=== PATIENT | female | born 1940 | race Caucasian/White ===

== ENCOUNTER 2017-01-22 07:50 | Day surgery (SDC) | payer MEDICARE, BC ==
[2015-11-17 07:34] VITALS: BP 92/56
--- OUTSIDE RECORDS SUMMARY | 2017-01-22 07:54 | XMS REPORT | Continuity of Care Document ---
:1940 Author Organization [facility] ([facility]) [place] [address] Phone [phone] Care Team Providers Name Role Phone Robert Santo Primary Care Provider [phone] Source Comments This disclosure is being made pursuant to the Care Everywhere program, applicable federal and state laws, and may not contain all informaitonavailable regarding this patient.[facility] ([facility]) Active Allergies and Adverse Reactions Allergen Noted Date Severity Reactions Comments Morphine Sulfate 11/17/2015 Mental status changes Current Medications Prescription Sig. Disp. Refills Start Date End Date Status FLUoxetine 40 mg Take 40 mg by Active capsule mouth daily. ALPRAZolam 0.5 mg Take 0.5 mg Active tablet by mouth 2 times daily as needed. multivitamin tablet Take 1 tablet Active by mouth daily. ibuprofen 200 mg Take 400 mg Active tablet by mouth every morning. mirtazapine 45 mg Take 45 mg by Active tablet mouth at bedtime. amLODIPine 10 mg Take 1 tablet 30 tablet 6 11/22/2015 Active tablet (10 mg total) by mouth daily. carvedilol 12.5 mg Take 1 tablet 60 tablet 11/22/2015 Active tablet (12.5 mg total) by mouth 2 times daily. clopidogrel 75 mg Take 1 tablet 30 tablet 11/22/2015 Active tablet (75 mg total) by mouth daily. lisinopril 30 mg Take 30 mg by 05/30/2016 Active tablet mouth daily. levothyroxine 50 mcg Take 50 mcg Active tablet by mouth every morning before breakfast. naproxen 250 mg Take 250 mg Active tablet by mouth 2 times daily with meals. donepezil 5 mg Take 5 mg by Active tablet mouth at bedtime. atorvastatin 20 mg Take 10 mg by Active tablet mouth every evening. aspirin 81 mg Take 1 tablet 30 tablet 12/24/2016 Active chewable tablet (81 mg total) by mouth daily. aspirin 81 mg Take 1 tablet 30 tablet 11 11/22/2015 12/24/2016 Discontinued chewable tablet (81 mg total) by mouth daily. Active Problems Problem Noted Date Anemia due to blood loss, acute 11/21/2015 Overview: Monitor h/h and replace per protocol Hematoma of groin 11/21/2015 Overview: Monitor consider ultrasound to rule out pseudo Metabolic encephalopathy 11/18/2015 Overview: Patient with increased confusion following EVAR for AAA. Per family, patient has some early signs of underlying dementia at baseline. Will continue non-pharmacologic management at this time. Abdominal aortic aneurysm without rupture 11/17/2015 Essential hypertension 11/17/2015 Overview: 11/16: Invasive HD monitoring. Oral hypertensives for baseline control. Intermittently requiring nicardipine for BP control. Most Recent Encounters Date Type Specialty Providers Description 12/24/2016 Hospital Encounter [facility] Chief Comp: Irina Johns MD Reported Reason For Visit 12/24/2016 Hospital Encounter [facility] Chief Comp: Irina Johns MD Reported Reason For Visit 12/24/2016 Hospital Encounter [facility] Chief Comp: Irina Johns MD Reported Reason For Visit 12/24/2016 Office Visit [facility] Dx: Abdominal aortic MD Andreas aneurysm without rupture (Primary Dx) Social History Tobacco Use Types Packs/Day Years Used Date Former Smoker Quit: 11/13/2015 Smokeless Tobacco: Never Used Last Filed Vital Signs Vital Sign Reading Time Taken Blood Pressure 136/50 12/24/2016 11:34 AM CDT Pulse 56 12/24/2016 11:34 AM CDT Temperature 36.4 C (97.5 F) 12/24/2016 11:32 AM CDT Respiratory Rate 20 11/21/2015 8:39 PM CDT Height 1.626 m (5' 4") 12/24/2016 11:32 AM CDT Weight 77.45 kg (170 lb 11.9 oz) 12/24/2016 11:32 AM CDT Body Mass Index 29.29 12/24/2016 11:32 AM CDT Oxygen Saturation 94% 11/22/2015 8:18 AM CDT Plan of Care Date Type Specialty Providers Description 12/23/2017 Appointment Radiology Chief Comp: Patient Reported Reason For Visit 12/23/2017 Appointment [facility], Chief Comp: Patient MD Reported Reason For [address] [place] [address] [phone] (Fax) 12/23/2017 Appointment [facility], Chief Comp: Patient Reported Reason For [address] [place] [address] [phone] (Fax) Health Maintenance Due Date Last Done Comments Hepatitis B Vaccine (1 of 3 - Primary Series) 1940 Tdap Vaccine 01/20/1952 Lipid Disorder Screening 1959 Td Vaccine 1959 Mammogram 1981 Colonoscopy 1991 Zoster Vaccine 2001 Osteoporosis Screening (DXA Bone Density) 2006 Pneumococcal Vaccine (1 of 2 - PCV13) 2006 Influenza Vaccine: Seasonal (Season Ended) 2017 Results from Last 3 Months VASC RENAL HILAR DUPLEX (BILATERAL) (12/24/2016 11:27 AM) Component Value Range VASC RIGHT RENAL MIDDLE PARENCHYMA ACCELERATION INDEX 4.27 m/(sec)^2 VASC RIGHT RENAL MIDDLE PARENCHYMA RI 0.72 VASC RIGHT RENAL MIDDLE PARENCHYMA PI 1.92 VASC LEFT RENAL MIDDLE PARENCHYMA ACCELERATION INDEX 4.33 m/(sec)^2 VASC LEFT RENAL MIDDLE PARENCHYMA RI 0.70 VASC LEFT RENAL MIDDLE PARENCHYMA PI 1.43 VASC AORTA DUPLEX (COMPLETE) (12/24/2016 11:27 AM) Component Value Range VASC AORTA SAC MAX DIAMETER AP 5.0 cm VASC AORTA SAC MAX DIAMETER TRANS 4.3 cm
== END 2017-01-22 07:51 | disposition home or self-care (01) ==
LOC: AMB 07:50
PROVIDERS: ATTEND Internal Medicine
DX: K52.9 Noninfective gastroenteritis and colitis, unspecified (principal)

== ENCOUNTER 2017-01-23 07:57 | Day surgery (SDC) | payer MEDICARE, BC ==
[2015-11-17 07:34] VITALS: BP 92/56
[~2017-01-23 07:57] MED LIST: LACTULOSE 10 G/15 ML BTL PO PRN
--- OUTSIDE RECORDS SUMMARY | 2017-01-23 08:01 | XMS REPORT | Continuity of Care Document ---
:1940 Author Organization [facility] ([facility]) [place] [address] Phone [phone] Care Team Providers Name Role Phone Robert Santo Primary Care Provider [phone] Source Comments This disclosure is being made pursuant to the Care Everywhere program, applicable federal and state laws, and may not contain all informaitonavailable regarding this patient.[facility] ([facility]) Active Allergies and Adverse Reactions Allergen Noted Date Severity Reactions Comments Morphine Sulfate 11/17/2015 Mental status changes Current Medications Prescription Sig. Disp. Refills Start Date End Date Status FLUoxetine 40 mg Take 40 mg by Active capsule mouth daily. ALPRAZolam 0.5 mg Take 0.5 mg by Active tablet mouth 2 times daily as needed. multivitamin tablet Take 1 tablet by Active mouth daily. ibuprofen 200 mg tablet Take 400 mg by Active mouth every morning. mirtazapine 45 mg Take 45 mg by Active tablet mouth at bedtime. amLODIPine 10 mg tablet Take 1 tablet (10 30 tablet 11/22/2015 Active mg total) by mouth daily. carvedilol 12.5 mg Take 1 tablet 60 tablet 11/22/2015 Active tablet (12.5 mg total) by mouth 2 times daily. clopidogrel 75 mg Take 1 tablet (75 30 tablet 11/22/2015 Active tablet mg total) by mouth daily. lisinopril 30 mg tablet Take 30 mg by 05/30/2016 Active mouth daily. levothyroxine 50 mcg Take 50 mcg by Active tablet mouth every morning before breakfast. naproxen 250 mg tablet Take 250 mg by Active mouth 2 times daily with meals. donepezil 5 mg tablet Take 5 mg by Active mouth at bedtime. atorvastatin 20 mg Take 10 mg by Active tablet mouth every evening. aspirin 81 mg chewable Take 1 tablet (81 30 tablet 12/24/2016 Active tablet mg total) by mouth daily. Active Problems [...] Reported Reason For Visit 12/24/2016 Hospital Encounter [facility] Chief Comp: Irina [...] [facility], Chief Comp: Patient Reported Reason For [address] [place] [address] [phone] (Fax) 12/23/2017 Appointment [facility], Chief Comp: Patient MD Reported Reason For [address] [place] [address] [phone] (Fax) Health Maintenance Due Date Last Done [...]
== END 2017-01-23 07:58 | disposition home or self-care (01) ==
LOC: AMB 07:57
PROVIDERS: ATTEND Internal Medicine
DX: K52.9 Noninfective gastroenteritis and colitis, unspecified (principal)

== ENCOUNTER 2017-01-24 08:23 | Day surgery (SDC) | payer MEDICARE, BC ==
[2015-11-17 07:34] VITALS: BP 92/56
--- OUTSIDE RECORDS SUMMARY | 2017-01-24 08:27 | XMS REPORT | Continuity of Care Document ---
:1940 Author Organization [facility] ([facility]) [place] [address] Phone [phone] Care Team Providers Name Role Phone Robert Santo Primary Care Provider [phone] Source Comments This disclosure is being made pursuant to the Care Everywhere program, applicable federal and state laws, and may not contain all informaitonavailable regarding this patient.[facility] ([facility]) Active Allergies and Adverse Reactions Allergen Noted [...] Reported Reason For [address] [place] [address] [phone] (Fax) 12/23/2017 Appointment [facility], Chief Comp: Patient MD Reported Reason For [address] [place] [address] [phone] (Fax) Health Maintenance Due Date Last Done [...]
== END 2017-01-24 08:24 | disposition home or self-care (01) ==
LOC: AMB 08:23
PROVIDERS: ATTEND Internal Medicine
DX: K52.9 Noninfective gastroenteritis and colitis, unspecified (principal)

== ENCOUNTER 2017-03-09 17:00 | Emergency (ER) | payer MEDICARE, BC ==
[2017-03-09] MEDS ORDERED: ACETAMINOPHEN 325 MG TABLET PO ONE (17:52)
[2017-03-09] MEDS ORDERED: ACETAMINOPHEN 325 MG TABLET ONE (17:58)
[2017-03-09 18:04] LABS: Hematocrit 37.2 % (37.0-47.0); Hemoglobin 12.3 gm/dL (12.5-16.0); Mean Cell Volume 93.7 fl (78-100); Mean Corpuscular Hgb Conc 33.1 g/dl (32-36); Neutrophil # 4.4 K/mm3 (1.3-6.0); Neutrophil % 57.8 % (42-75.0); Platelet Count 246 K/mm3 (150-450); Red Blood Count 3.97 M/mm3 (4.2-5.4); Red Cell Distribution Width 15.3 % (11.5-14.0); White Blood Count 7.6 K/mm3 (4.0-10.5)
--- NOTE | 2017-03-09 18:08 | ERNOTE ---
Abdominal HPI - General Chief Complaint: Abdominal Pain Time Seen by Provider: 03/09/17 17:41 Source: patient, family Exam Limitations: no limitations - Immun/Allergies/Home Medications Immunizatons: IMMUNIZATION HX Immunizations Up to Date No Allergies/Adverse Reactions: Allergies morphine Adverse Reaction (Intermediate, Verified 03/09/17 17:19) Other patient became obtunded with medication. Home Medications: HOME MEDICATIONS ALPRAZolam [Xanax] 1 mg PO TID PRN 11/17/15 [Last Taken Unknown] FLUoxetine HCL [Prozac] 20 mg PO DAILY 11/17/15 [Last Taken Unknown] - History of Present Illness Narrative: Patient has had intermittent diarrhea for a few months. Yesterday shortly after eating steak and a baked potato at a restaurant she had a large amount of explosive diarrhea and she has had lower abdominal pain since. The pain is cramping and sharp and waxes and wanes, currently 5/10. With the acute diarrhea she lost control of her bladder but has not had any problems since, no increased frequency, no dysuria, no vomiting. She has seen her PCP for the diarrhea and is scheduled for a colonoscopy next month (last one 10 years go) Date (Duration): 03/08/17 Time (Timing): 17:30 Timing: intermittent Quality: moderate, cramping, sharpness Activities at Onset: none Modifying Factors - (Worsens): Absent: breathing, coughing, movement Review of Systems - Review of Systems Constitutional: Present: weight loss - 20lbs in 6 month(unintentional). Absent : recent illness, fever ENT: Absent: nose congestion, sore throat Respiratory: Absent: shortness of breath Cardiology: Absent: chest pain Gastrointestinal/Abdominal: Present: See HPI, diarrhea, abdominal pain. Absent : nausea, vomiting Genitourinary: Present: no symptoms reported. Absent: frequency, pain, dysuria Musculoskeletal: Absent: back pain Neurological: Absent: headache - Patient's Past Medical History Patient History - Medical: Anxiety Patient History - Cardiac/Respiratory: Aneurysm - aortic, had stent placed, also renal stents Patient History - Cancer: No Hx of Cancer Patient History - Surgical Procedures: Appendectomy, Colonoscopy, Tubal Ligation , Other - Social History Living Situations: home Abuse History: No History of abuse Psych History: Hx of Anxiety Alcohol Use: none Drug Use: none - Immunizations Immunizations Up to Date: No Physical Exam - Physical Exam General Appearance: Present: wd/wn, alert, no apparent distress Ears, Nose, Throat: Present: normal pharynx Respiratory: Present: no respiratory distress, no accessory muscle use, lungs clear, decreased breath sounds Cardiovascular/Chest: Present: regular rate, rhythm, no murmur Gastrointestinal/Abdominal: Present: normal bowel sounds, nondistended, soft, tenderness - lower abdomen, max suprapubic,, other - palpable fullness suprapubic Rectal Exam: Present: nontender, normal rectal tone. Absent: fecal impaction Back Exam: Present: no CVA tenderness Neurological Exam: Present: alert, oriented, normal mood/affect, no motor/ sensory deficits Skin Exam: Present: normal color, warm/dry Pelvic Exam: Absent: cervical motion tendernes, other - manual exam limited by obesity, no definite mass identified, no tenderness ED Progress - Results and Orders Patient's Lab Results:: I have reviewed the patient's lab results. - Vital Signs Patient's Vital Signs:: I have reviewed the patient's vital signs. Vital Signs: Vital Signs 03/09/17 17:15 Temperature 35.9 C L Pulse Rate 58 L Respiratory 12 Rate Blood Pressure 153/85 O2 Sat by Pulse 95 Oximetry - X-Ray X-Ray #1 X-Ray: abdomen - normal gas pattern, aortic and renal stents Interpretation: Interp. by me - Progress/Reassessment Chief Complaint: Abdominal Pain Progress Note-Subjective: 03/09/17 18:46 discussed test results, offered possibly doing a CT scan, patient prefers to hold off at this point Departure - Departure Clinical Impression: Abdominal pain Qualifiers: Abdominal location: lower abdomen, unspecified Qualified Code(s): R10.30 - Lower abdominal pain, unspecified Disposition: Home self-care Condition: Stable Instructions: Abdominal Pain, Adult, [id number] Additional Instructions: if the pain gets worse, you start vomiting or get a fever return to the ER at any time otherwise call your doctor after the weekend for follow up Referrals: Melonie Dominguez MD [Primary Care Provider] -
[2017-03-09 18:19] LABS: Albumin * 3.7 gm/dl (3.4-5.0); Anion Gap 13.3 mmol/L (6.8-13.8); BUN/Creatinine Ratio 21.3 (9.0-21.6); Bilirubin, Total 0.3 mg/dL (0.0-1.1); Ca. Corrected For Albumin 8.9 mg/dL (8.4-10.2); Carbon Dioxide 28.1 mmol/L (24-32.6); Potassium 4.4 mmol/L (3.4-4.6); Total Protein 7.7 gm/dL (6.2-8.2)
[2017-03-09 18:27] LABS: Urine Appearance Clear; Urine Bilirubin Negative (NEGATIVE); Urine Blood 10 /ul (NEGATIVE); Urine Color Yellow; Urine Ketone Negative (NEGATIVE); Urine Nitrite Negative (NEGATIVE); Urine Protein Negative (NEGATIVE); Urine Specific Gravity 1.015 SP.GR. (1.005-1.010); Urine Urobilinogen Normal (NORMAL)
[2017-03-09 18:28] LABS: Urine Bacteria None Seen; Urine RBC None Seen /hpf (0-5)
[2017-03-09 18:29] LABS: Urine WBC 0-5 /hpf (0-5)
[2017-03-09 18:42] VITALS: BP 184/81
== END 2017-03-09 18:52 | disposition home or self-care (01) ==
LOC: ER 17:00
DX: R10.30 Lower abdominal pain, unspecified (principal); F41.9 Anxiety disorder, unspecified

== ENCOUNTER 2017-04-08 09:18 | Day surgery (SDC) | payer MEDICARE, BC ==
[2017-04-08] MEDS: RINGER'S SOLUTION,LACTATED 1,000 ML IV PRN ×2 (09:35→09:50)
--- NOTE | 2017-04-08 10:52 | OR ---
Operative Report - Dictated Report Narrative: OPERATIVE REPORT DATE OF OPERATION: 04/08/2017 PREOPERATIVE DIAGNOSIS: Diarrhea. No recent dedicated colon studies POSTOPERATIVE DIAGNOSIS: Normal colonoscopy (pathology pending) OPERATION: Colonoscopy with random colon biopsies SURGEON: Tiesha Summers MD ANESTHESIA: JADE Patton CRNA INDICATIONS FOR PROCEDURE: The patient is a 77-year-old female referred by Dr. Dominguez. Her last colonoscopy was in 2005. There is no family history of colon cancer. The patient has had diarrhea for 2 months FINDINGS: Normal colonoscopy (pathology pending) NARRATIVE OF PROCEDURE: The patient was identified in the holding area, and prior to the administration of anesthetic, a multidisciplinary timeout was observed. With the patient in the left lateral position and after the administration of intravenous sedation, the perineum was inspected. There was no evidence of pilonidal disease or skin breakdown. The external appearance of the anus was normal. Sphincter tone was good. The flexible fiberoptic colonoscope was inserted into the rectum which was insufflated with air. The rectal mucosa and submucosal vascular pattern appeared normal, the prep was seen to be complete. The scope was advanced through the sigmoid colon, up the descending colon, and around the splenic flexure where the triangular haustral architecture of the transverse colon was seen. The scope was advanced across the transverse colon, around the hepatic flexure to the cecum, where the confluence of tenia and the ileocecal valve were identified. The mucosa at this level appeared normal. The scope was then slowly withdrawn in a circular fashion so that all aspects of colonic mucosa were inspected. The colon was somewhat capacious and character but normal in course. The haustral architecture appeared well preserved throughout with no evidence of external compression. The mucosa and submucosal vascular pattern appeared normal, specifically there was no gross evidence to suggest colitis or inflammatory bowel disease and no AV malformations were seen. Random colon biopsies were obtained. The biopsy sites were seen to be hemostatic. No bruce diverticulosis was demonstrated. No polyps were encountered. The scope was gradually withdrawn to the level of the rectum. As much insufflated air as possible was removed. The scope was withdrawn from the patient and the procedure terminated. The patient tolerated the anesthetic and procedure well without complication and was transferred back to the ambulatory surgery area awake and in stable condition. The patient remained stable throughout a period of postoperative observation. She denied abdominal discomfort, was able to tolerate by mouth intake, and was up without assistance. I shared the operative findings with the patient and she was given copies of the photographs which appear in the medical record. She was discharged home with instructions not to engage in hazardous activity today , but may resume normal activity tomorrow, and advance diet as tolerated. She is to continue those medications as listed in the history and physical exam. I made arrangements to contact her with the biopsy reports and will make additional recommendations for treatment and follow-up based upon those results. Reviewed and electronically signed
[2017-04-08 11:29] VITALS: BP 107/60
== END 2017-04-08 09:19 | disposition home or self-care (01) ==
LOC: AMB 09:18
PROVIDERS: ATTEND Surgery
PROC: 0DBE8ZX Excision of Large Intestine, Via Natural or Artificial Opening Endoscopic, Diagnostic (ICD-10-PCS; principal; 2017-04-08 10:00)
DX: Z12.11 Encounter for screening for malignant neoplasm of colon (principal); R19.7 Diarrhea, unspecified; I10 Essential (primary) hypertension; E78.5 Hyperlipidemia, unspecified; E03.9 Hypothyroidism, unspecified; J44.9 Chronic obstructive pulmonary disease, unspecified; M19.90 Unspecified osteoarthritis, unspecified site; D51.9 Vitamin B12 deficiency anemia, unspecified; F32.9 Major depressive disorder, single episode, unspecified; F17.210 Nicotine dependence, cigarettes, uncomplicated; Z68.28 Body mass index [BMI] 28.0-28.9, adult

== ENCOUNTER 2017-05-21 12:09 | Day surgery (SDC) | payer MEDICARE, BC ==
[~2017-05-21 12:09] MED LIST changes: -LACTULOSE 10 G/15 ML BTL PO PRN; +RINGER'S SOLUTION,LACTATED 1,000 ML IV PRN; +ceFAZolin SODIUM 1 GM in DEXTROSE 5 % IN WATER 100 ML IV PRN
[2017-05-21] MEDS ORDERED: RINGER'S SOLUTION,LACTATED 1,000 ML IV ONE (12:36)
[2017-05-21] MEDS ORDERED: BUPIVACAINE HCL 50 ML VIAL IJ ONE (13:30)
[2017-05-21] MEDS ORDERED: BUPIVACAINE HCL/EPINEPHRINE 50 ML VIAL IJ ONE (13:30)
[2017-05-21] MEDS ORDERED: DEXAMETHASONE SOD PHOSPHATE 4 MG/ML VIAL IJ ONE (14:23)
[2017-05-21] MEDS ORDERED: HYDROcodone/ACETAMINOPHEN 1 EACH TABLET PO PRN (15:22)
[2017-05-21] MEDS ORDERED: PROCHLORPERAZINE EDISYLATE 5 MG/ML VIAL IM PRN (15:23)
[2017-05-21 16:44] VITALS: BP 155/66
== END 2017-05-21 12:10 | disposition home or self-care (01) ==
LOC: AMB 12:09
PROVIDERS: ATTEND Podiatrist
PROC: 0QSP04Z Reposition Left Metatarsal with Internal Fixation Device, Open Approach (ICD-10-PCS; principal; 2017-05-21 13:00)
DX: M21.612 Bunion of left foot (principal); I10 Essential (primary) hypertension; E78.5 Hyperlipidemia, unspecified; E03.9 Hypothyroidism, unspecified; D51.9 Vitamin B12 deficiency anemia, unspecified; J44.9 Chronic obstructive pulmonary disease, unspecified; M19.90 Unspecified osteoarthritis, unspecified site; F17.210 Nicotine dependence, cigarettes, uncomplicated; Z68.30 Body mass index [BMI] 30.0-30.9, adult

== ENCOUNTER 2020-12-20 10:10 | Observation (INO) ==
[2020-12-20] MEDS ORDERED: ACETAMINOPHEN 1,000 MG/100 ML BTL IV ONE (10:39)
[2020-12-20 10:58] LABS: Hematocrit 26.8 % (37.0-47.0); Hemoglobin 8.2 gm/dL (12.5-16.0); Mean Cell Volume 98.9 fl (78-100); Mean Corpuscular Hemoglobin 30.3 pg (27-31); Mean Corpuscular Hgb Conc 30.6 g/dl (32-36); Mean Platelet Volume 9.4 fl (8-12.5); Neutrophil # 3.1 K/mm3 (1.3-6.0); Neutrophil % 49.7 % (42-75.0); Platelet Count 120 K/mm3 (150-450); Red Blood Count 2.71 M/mm3 (4.2-5.4); White Blood Count 6.3 K/mm3 (4.0-10.5)
[2020-12-20 11:17] LABS: ALT 23 U/L (19-67); AST 21 U/L (0-48); Albumin * 2.6 gm/dl (3.4-5.0); Alkaline Phosphatase * 77 U/L (50-170); Anion Gap 12.6 mmol/L (6.8-13.8); BNP * 971 pg/mL (5-550); BUN/Creatinine Ratio 11.6 (9.0-21.6); Bilirubin, Total 0.4 mg/dL (0.0-1.1); Blood Urea Nitrogen 15 mg/dL (3-23); Ca. Corrected For Albumin 8.8 mg/dL (8.4-10.2); Carbon Dioxide 26.3 mmol/L (24-32.6); Chloride 108 mmol/L (97-106); Glucose * 94 mg/dL (70-110); Lipase 85 U/L (73-393); Potassium 3.9 mmol/L (3.4-4.6); Sodium 143 mmol/L (132-142); Total Protein 5.4 gm/dL (6.2-8.2); Troponin I Less than 0.017 ng/mL (0.00-0.10)
[2020-12-20] MEDS ORDERED: ASPIRIN 81 MG TAB.CHEW PO ONE (14:52)
--- NOTE | 2020-12-20 14:52 | HP ---
Chief Complaint - Chief Complaint Date of Service: 12/20/20 Time of Service: 14:09 History of Present Illness: 80-year-old female with past medical history of dementia, bradycardia, abdominal aortic aneurysm, anxiety, depression, COPD, hypertension, hyperlipidemia, hypothyroidism, osteoarthritis, gastritis presents from [facility] with complaints of weakness, chest pain and difficulty to arouse. She has had these recurring symptoms for the past few weeks. She was recently hospitalized at [facility] on December 17, 2020 for similar symptoms. She was evaluated by the examination proctor Dr. Teodoro Mooney and he determined that no intervention was needed. She has a chronic history of bradycardia and had an echocardiogram, stress test in 2019, donepezil was discontinued at that time. On discharge her donepezil was again discontinued. In the ER she was found to have anemia with hemoglobin of 8.2, hematocrit of 26.8, baseline hemoglobin is 10-12, baseline hematocrit runs 33.7-37.1. She has mild hyponatremia with a sodium of 143, troponin is negative, chest x-ray shows no acute chest disease, CT angio shows no acute pulmonary thromboembolic disease, moderate pulmonary emphysema and scarring, stable 7 mm spiculated opacity in the lateral right middle lobe, infrarenal abdominal aortic and bilateral iliac aneurysm with intact endograft, no evidence of graft leak or complication, hepatic steatosis probable gallstone or sludge ball with no acute cholecystitis, small bilateral nonobstructing nephroliths. She denies any black or blood in her stool, guaiac stool is negative in the ER. She is being admitted for chest pain observation. Medical History (Last Reviewed 12/20/20 @ 10:56 by Naldo Mo RN) Vomiting (Acute) COPD exacerbation (Acute) Acute bronchitis (Acute) Hyperlipidemia (Chronic) Cardiac arrhythmia (Acute) dizziness/falls with sensation of palpitations- heart racing and slowing Anxiety and depression (Chronic) AAA (abdominal aortic aneurysm) (Chronic) s/p stenting Chronic obstructive pulmonary disease (Chronic) Hypothyroidism (Chronic) Hypertension (Chronic) Abdominal aortic aneurysm dissection (Acute) Abdominal pain (Acute) Wry neck (Acute) Syncope (Resolved) likely orthostatic Hypoglycemia (Acute) Gastroenteritis (Acute) Dementia (Chronic) Gastritis (Acute) Anemia, B12 deficiency Onset Date: Unknown COPD (chronic obstructive pulmonary disease) Onset Date: 07/03/13 Depression Onset Date: Unknown HTN (hypertension) Onset Date: Unknown Hyperlipidemia Onset Date: Unknown Hypothyroid Onset Date: Unknown Osteoarthritis Onset Date: 02/11/13 Surgical History: Surgical History (Last Reviewed 12/20/20 @ 10:56 by Naldo Mo RN) History of bladder surgery 1987 Cystoscopy Hx of aortic aneurysm repair 11/17/15 [facility] - endovascular repair of ruptured AAA w/saw renal artery stenting. Hx of appendectomy Hx of colonoscopy W/biopsy 05/22/06, 04/08/17 ' Dr. Jimenez - Rt sided colonic arteriovenous malformation. Mild chronic inflammation, benign colonic mucosa. Dr. Summers - Normal colonic mucosa. Hx of stent placement Renal artery x3 Hx of tonsillectomy As a child. 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 Highest level of school completed/degree received: high school graduate Service: No Tobacco: Smoking Status: Former smoker Smoking End Date: 12/03/20 second hand exposure: Yes Alcohol: alcohol intake: former Substance Use: substance use type: does not use Dietary Habits: caffeine: Yes caffeine comment: Current Some day Exercise: frequency: does not exercise Review Of Systems (GEN) - Review of Systems Generalized/Overall Review: Absent: Fever Respiratory: Absent: Shortness of Breath Cardiac: Present: Chest Pain Abdominal: Absent: Abdominal Pain Misc: All systems neg except as marked Immunizations: IMMUNIZATION HX Immunizations Up to Date Yes History of Influenza Vaccine No Hx Pneumococcal Vaccination No Allergies/Adverse Reactions: Allergies Allergy/AdvReac Type Severity Reaction Status Date / Time morphine AdvReac Mild confused Verified 12/20/20 10:13 and taste changes Home Medications: HOME MEDICATIONS atorvastatin 10 mg tablet 10 mg PO DAILY #30 tab 08/24/20 [Last Taken Unknown] levothyroxine 50 mcg tablet 50 mcg PO DAILY #30 tab 08/24/20 [Last Taken Unknown] cholecalciferol (vitamin D3) 10 mcg (400 unit) tablet 400 unit PO DAILY #1 tab 08/26/20 [Last Taken Unknown] donepezil 23 mg tablet 23 mg PO HS #30 tab 08/26/20 [Last Taken Unknown] hmlqinug-fxz-fchwp ac 400 mcg-calcium carb 500 mg-vit K1 20 mcg tablet 1 tab PO DAILY #1 tab 08/26/20 [Last Taken Unknown] memantine 10 mg tablet 10 mg PO BID #60 tab 10/03/20 [Last Taken Unknown] aspirin 325 mg tablet 325 mg PO DAILY 11/29/20 [Last Taken Unknown] acetaminophen 325 mg tablet 650 mg PO Q6H PRN tab 12/01/20 [Last Taken Unknown] alprazolam 0.5 mg tablet 0.5 mg PO BID PRN #45 tab 12/01/20 [Last Taken Unknown] fluoxetine 40 mg capsule 40 mg PO DAILY #90 cap 12/01/20 [Last Taken Unknown] nicotine 21 mg/24 hr daily transdermal patch 1 patch TRANSDERMAL DAILY 42 Days #42 ea 12/01/20 [Last Taken Unknown] ALPRAZolam [Xanax] 0.5 mg PO BID #60 tab 12/06/20 [Last Taken Unknown] Albuterol Sulfate [Albuterol Sulfate 0.63 MG/3ML] 0.63 mg IH Q12H PRN 12/17/20 [Last Taken Unknown] traZODone HCL [Desyrel] 50 mg PO HS PRN 12/17/20 [Last Taken Unknown] Exam - Exam Vital Signs: Vital Signs - Last Taken Temp 36.6 C 12/20/20 10:10 Pulse 49 L 12/20/20 14:36 Resp 14 12/20/20 14:36 BP 153/44 H 12/20/20 14:36 Pulse Ox 94 12/20/20 14:36 Constitutional: Present: Alert, Cooperative, Well developed, Well nourished, No distress, Elderly ENT Exam: Present: hearing grossly normal, moist mucous membranes Eye Exam: bilateral eye: normal inspection, PERRL, EOMI Neck: Absent: lymphadenopathy (R), lymphadenopathy (L) Back Exam: Present: normal inspection, no CVA tenderness, no vertebral tenderness Respiratory: Present: lungs clear, no respiratory distress, no accessory muscle use, No wheezing. Absent: crackles, rhonchi Cardiovascular/Chest: Present: normal peripheral pulses, regular rate, rhythm, no edema Peripheral Pulses: dorsalis-pedis (R): 1+, dorsalis-pedis (L): 1+ Abdomen: Present: Normal bowel sounds, soft, nontender Extremity: Present: no pedal edema Skin Exam: Present: normal color, warm/dry Neurologic: Present: alert, normal mood/affect Appearance: Present: appropriate appearance, appropriate insight Eye contact: Present: cooperative Thoughts: Present: normal thought pattern, normal mood /affect Diagnostic Studies: Abnormal Lab Results 12/20/20 12/20/20 12/20/20 Range/Units 10:50 10:50 10:50 RBC 2.71 L (4.2-5.4) M/mm3 Hgb 8.2 L (12.5-16.0) gm/dL Hct 26.8 L (37.0-47.0) % MCHC 30.6 L (32-36) g/dl RDW 15.0 H (11.5-14.0) % Plt Count 120 L (150-450) K/mm3 Monocytes % 11.2 H (0.0-9) % Eosinophils % 13.7 H (0.0-3.0) % Eosinophils # 0.9 H (0.0-0.7) k/mm3 D-Dimer 2.03 H (0.19-0.49) ugFEU/mL Sodium 143 H (132-142) mmol/L Plasma Sodium 143 H (130-142) mmol/L Chloride 108 H (97-106) mmol/L Est GFR (Non-Af Amer) 42 L (60-130) mL/min B-Natriuretic Peptide 971 H (5-550) pg/mL Total Protein 5.4 L (6.2-8.2) gm/dL Albumin 2.6 L (3.4-5.0) gm/dl 12/20/20 Range/Units 14:21 RBC (4.2-5.4) M/mm3 Hgb 8.5 L (12.5-16.0) gm/dL Hct (37.0-47.0) % MCHC (32-36) g/dl RDW (11.5-14.0) % Plt Count (150-450) K/mm3 Monocytes % (0.0-9) % Eosinophils % (0.0-3.0) % Eosinophils # (0.0-0.7) k/mm3 D-Dimer (0.19-0.49) ugFEU/mL Sodium (132-142) mmol/L Plasma Sodium (130-142) mmol/L Chloride (97-106) mmol/L Est GFR (Non-Af Amer) (60-130) mL/min B-Natriuretic Peptide (5-550) pg/mL Total Protein (6.2-8.2) gm/dL Albumin (3.4-5.0) gm/dl Laboratory Results WBC 6.3 K/mm3 (4.0-10.5) D 12/20/20 10:50 RBC 2.71 M/mm3 (4.2-5.4) L 12/20/20 10:50 Hgb 8.5 gm/dL (12.5-16.0) L 12/20/20 14:21 Hct 26.8 % (37.0-47.0) L 12/20/20 10:50 MCV 98.9 fl (78-100) 12/20/20 10:50 MCH 30.3 pg (27-31) 12/20/20 10:50 MCHC 30.6 g/dl (32-36) L 12/20/20 10:50 RDW 15.0 % (11.5-14.0) H 12/20/20 10:50 Plt Count 120 K/mm3 (150-450) L 12/20/20 10:50 MPV 9.4 fl (8-12.5) 12/20/20 10:50 Immature Gran % (Auto) 0.30 % (0.001-0.429) 12/20/20 10:50 Immature Gran # (Auto) 0.02 K/mm3 (0.000-0.0310) 12/20/20 10:50 Neutrophils % 49.7 % (42-75.0) 12/20/20 10:50 Lymphocytes % 24.6 % (20-51) 12/20/20 10:50 Monocytes % 11.2 % (0.0-9) H 12/20/20 10:50 Eosinophils % 13.7 % (0.0-3.0) H 12/20/20 10:50 Basophils % 0.5 % (0.0-1.0) 12/20/20 10:50 Nucleated RBC % 0.0 k/mm3 (0-1) 12/20/20 10:50 Neutrophils # 3.1 K/mm3 (1.3-6.0) 12/20/20 10:50 Lymphocytes # 1.54 k/mm3 (1.5-3.5) 12/20/20 10:50 Monocytes # 0.7 k/mm3 (0.0-1.0) 12/20/20 10:50 Eosinophils # 0.9 k/mm3 (0.0-0.7) H 12/20/20 10:50 Absolute Basophils 0.0 k/mm3 (0.0-0.1) 12/20/20 10:50 D-Dimer 2.03 ugFEU/mL (0.19-0.49) H 12/20/20 10:50 Sodium 143 mmol/L (132-142) H 12/20/20 10:50 Plasma Sodium 143 mmol/L (130-142) H 12/20/20 10:50 Potassium 3.9 mmol/L (3.4-4.6) 12/20/20 10:50 Chloride 108 mmol/L (97-106) H 12/20/20 10:50 Carbon Dioxide 26.3 mmol/L (24-32.6) 12/20/20 10:50 Anion Gap 12.6 mmol/L (6.8-13.8) 12/20/20 10:50 BUN 15 mg/dL (3-23) 12/20/20 10:50 Creatinine 1.29 mg/dL (0.4-1.4) 12/20/20 10:50 Est GFR (Non-Af Amer) 42 mL/min (60-130) L 12/20/20 10:50 BUN/Creatinine Ratio 11.6 (9.0-21.6) 12/20/20 10:50 Random Glucose 94 mg/dL (70-110) 12/20/20 10:50 Calcium 8.0 mg/dL (7.9-10.9) 12/20/20 10:50 Calcium Adj for Albumin 8.8 mg/dL (8.4-10.2) 12/20/20 10:50 Total Bilirubin 0.4 mg/dL (0.0-1.1) 12/20/20 10:50 AST 21 U/L (0-48) 12/20/20 10:50 ALT 23 U/L (19-67) 12/20/20 10:50 Alkaline Phosphatase 77 U/L (50-170) 12/20/20 10:50 Troponin I Less than 0.017 ng/mL (0.00-0.10) 12/20/20 14:21 B-Natriuretic Peptide 971 pg/mL (5-550) H 12/20/20 10:50 Total Protein 5.4 gm/dL (6.2-8.2) L 12/20/20 10:50 Albumin 2.6 gm/dl (3.4-5.0) L 12/20/20 10:50 Lipase 85 U/L (73-393) 12/20/20 10:50 Stool Occult Blood Negative 12/20/20 13:04 SARS-CoV-2 (PCR) Not detected (NotDetected) 12/20/20 10:47 Assessment/Plan - Narrative Narrative: 80-year-old female with past medical history of dementia, bradycardia, abdominal aortic aneurysm, anxiety, depression, COPD, hypertension, hyperlipidemia, hypothyroidism, osteoarthritis, gastritis presents from [facility] with complaints of weakness, chest pain and difficulty to arouse. She has had these recurring symptoms for the past few weeks. She was recently hospitalized at [facility] on December 17, 2020 for similar symptoms. She was evaluated by the examination proctor Dr. Teodoro Mooney and he determined that no intervention was needed. She has a chronic history of bradycardia and had an echocardiogram, stress test in 2019, donepezil was discontinued at that time. On discharge her donepezil was again discontinued. In the ER she was found to have anemia with hemoglobin of 8.2, hematocrit of 26.8, baseline hemoglobin is 10-12, baseline hematocrit runs 33.7-37.1. She has mild hyponatremia with a sodium of 143, troponin is negative, chest x-ray shows no acute chest disease, CT angio shows no acute pulmonary thromboembolic disease, moderate pulmonary emphysema and scarring, stable 7 mm spiculated opacity in the lateral right middle lobe, infrarenal abdominal aortic and bilateral iliac aneurysm with intact endograft, no evidence of graft leak or complication, hepatic steatosis probable gallstone or sludge ball with no acute cholecystitis, small bilateral nonobstructing nephroliths. She denies any black or blood in her stool, guaiac stool is negative in the ER. She is being admitted for chest pain observation. Plan #1 repeat CBC in the morning #2 resume home medications for comorbidities #3 continue with telemetry - Assessment/Plan (1) Chest pain Problem: Acute (2) Anemia Problem: Acute (3) Bradycardia Problem: Acute (4) Hyperlipidemia Problem: Chronic Qualifiers: (5) Anxiety and depression Problem: Chronic (6) AAA (abdominal aortic aneurysm) Problem: Chronic Qualifiers: (7) Chronic obstructive pulmonary disease Problem: Chronic Qualifiers: (8) Hypothyroidism Problem: Chronic Qualifiers: (9) Hypertension Problem: Chronic Qualifiers: (10) Dementia Problem: Chronic
--- NOTE | 2020-12-20 14:57 | ERNOTE ---
Chest Pain/Cardiac HPI Date of Service: 12/20/20 Chief Complaint: Chest Pain Time Seen by Provider: 12/20/20 10:31 Source: patient Exam Limitations: no limitations Immunizations: IMMUNIZATION HX Immunizations Up to Date Yes History of Influenza Vaccine No Hx Pneumococcal Vaccination No Allergies/Adverse Reactions: Allergies morphine Adverse Reaction (Mild, Verified 12/20/20 10:13) confused and taste changes nausea, "nutty" Home Medications: HOME MEDICATIONS atorvastatin 10 mg tablet 10 mg PO DAILY #30 tab 08/24/20 [Last Taken Unknown] levothyroxine 50 mcg tablet 50 mcg PO DAILY #30 tab 08/24/20 [Last Taken Unknown] cholecalciferol (vitamin D3) 10 mcg (400 unit) tablet 400 unit PO DAILY #1 tab 08/26/20 [Last Taken Unknown] donepezil 23 mg tablet 23 mg PO HS #30 tab 08/26/20 [Last Taken Unknown] ayelsqbe-hib-axbqq ac 400 mcg-calcium carb 500 mg-vit K1 20 mcg tablet 1 tab PO DAILY #1 tab 08/26/20 [Last Taken Unknown] memantine 10 mg tablet 10 mg PO BID #60 tab 10/03/20 [Last Taken Unknown] aspirin 325 mg tablet 325 mg PO DAILY 11/29/20 [Last Taken Unknown] acetaminophen 325 mg tablet 650 mg PO Q6H PRN tab 12/01/20 [Last Taken Unknown] alprazolam 0.5 mg tablet 0.5 mg PO BID PRN #45 tab 12/01/20 [Last Taken Unknown] fluoxetine 40 mg capsule 40 mg PO DAILY #90 cap 12/01/20 [Last Taken Unknown] nicotine 21 mg/24 hr daily transdermal patch 1 patch TRANSDERMAL DAILY 42 Days #42 ea 12/01/20 [Last Taken Unknown] ALPRAZolam [Xanax] 0.5 mg PO BID #60 tab 12/06/20 [Last Taken Unknown] Albuterol Sulfate [Albuterol Sulfate 0.63 MG/3ML] 0.63 mg IH Q12H PRN 12/17/20 [Last Taken Unknown] traZODone HCL [Desyrel] 50 mg PO HS PRN 12/17/20 [Last Taken Unknown] Narrative: Patient presents to the ED for chest pain via EMS. Comes from [facility]. SHe was seen over the weekend and transferred to [facility] for cardiology services for symptomatic bradycardia. This am she has diffuse CP. No SOB> Shes she feels terrible. No trauma or falls. Feels weak all over. no acute focal weakness. No abdominal pain. She wants to know why she feels like this. Timing: constant Severity/Quality: severe Location: substernal Chest Pain Radiation: no radiation Activities at Onset: none Modifying Factors - Improves: Present: nothing Modifying Factors - Worsens: Present: nothing Aspirin Treatment Today: unknown Associated Symptoms: Present: weakness. Absent: cough, shortness of breath, vomiting, abdominal pain Prior Chest Pain/Cardiac Workup: Denies: prior chest pain Prior Treatment: Reports: recently seen Review of Systems - Review of Systems Constitutional: Absent: fever EYE: Present: no symptoms reported ENT: Absent: sore throat Respiratory: Present: See HPI Cardiology: Present: See HPI Gastrointestinal/Abdominal: Absent: abdominal pain Genitourinary: Absent: dysuria Neurological: Present: See HPI, other - no focal weakness All Other Systems: All systems neg except as marked Medical History (Last Reviewed 12/20/20 @ 14:53 by Vince Mon MD) Vomiting (Acute) COPD exacerbation (Acute) Acute bronchitis (Acute) Hyperlipidemia (Chronic) Cardiac arrhythmia (Acute) dizziness/falls with sensation of palpitations- heart racing and slowing Anxiety and depression (Chronic) AAA (abdominal aortic aneurysm) (Chronic) s/p stenting Chronic obstructive pulmonary disease (Chronic) Hypothyroidism (Chronic) Hypertension (Chronic) Abdominal aortic aneurysm dissection (Acute) Abdominal pain (Acute) Wry neck (Acute) Syncope (Resolved) likely orthostatic Hypoglycemia (Acute) Gastroenteritis (Acute) Dementia (Chronic) Gastritis (Acute) Anemia, B12 deficiency Onset Date: Unknown COPD (chronic obstructive pulmonary disease) Onset Date: 02/11/13 Depression Onset Date: Unknown HTN (hypertension) Onset Date: Unknown Hyperlipidemia Onset Date: Unknown Hypothyroid Onset Date: Unknown Osteoarthritis Onset Date: 02/11/13 Surgical History: Surgical History (Last Reviewed 12/20/20 @ 14:53 by Vince Mon MD) History of bladder surgery 1987 Cystoscopy Hx of aortic aneurysm repair 11/17/15 [facility] [place] - endovascular repair of ruptured AAA w/saw renal artery stenting. Hx of appendectomy Hx of colonoscopy W/biopsy 05/22/06, 04/08/1706 Dr. Jimenez - Rt sided colonic arteriovenous malformation. Mild chronic inflammation, benign colonic mucosa. '17 Dr. Summers - Normal colonic mucosa. Hx of stent placement Renal artery x3 Hx of tonsillectomy As a child. 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 Highest level of school completed/degree received: high school graduate Service: No Tobacco: Smoking Status: Former smoker Smoking End Date: 12/03/20 second hand exposure: Yes Alcohol: alcohol intake: former Substance Use: substance use type: does not use Dietary Habits: caffeine: Yes caffeine comment: Current Some day Exercise: frequency: does not exercise Physical Exam - Physical Exam General Appearance: Present: alert, other - chronically ill appearing Head Exam: Present: normal inspection, no evidence of injury Eye Exam: Normal inspection: bilateral, PERRL: bilateral Ears, Nose, Throat: Present: normal ENT inspection Neck: Present: normal inspection Respiratory: Present: no respiratory distress, normal breath sounds, no accessory muscle use, lungs clear, chest tenderness Cardiovascular/Chest: Present: normal peripheral pulses, bradycardia Gastrointestinal/Abdominal: Present: normal bowel sounds, nontender, nondis tended, soft Back Exam: Absent: CVA tenderness (R), CVA tenderness (L) Extremity Exam: Absent: pedal edema Neurological Exam: Present: alert, no motor/sensory deficits, advanced developer II-XII nml as tested Skin Exam: Present: normal color, warm/dry Progress - Results and Orders Patient's Lab Results:: I have reviewed the patient's lab results. - Vital Signs Patient's Vital Signs:: I have reviewed the patient's vital signs. Vital Signs: Vital Signs 12/20/20 10:10 12/20/20 10:18 12/20/20 11:15 Temperature 36.6 C Pulse Rate 57 L 52 L 45 L Respiratory Rate 16 16 Blood Pressure 148/49 147/48 O2 Sat by Pulse Oximetry 99 98 12/20/20 11:45 12/20/20 12:13 12/20/20 12:41 Temperature Pulse Rate 45 L 48 L 47 L Respiratory Rate 15 13 13 Blood Pressure 131/52 118/40 130/39 O2 Sat by Pulse Oximetry 94 93 96 12/20/20 13:46 12/20/20 14:36 Temperature Pulse Rate 48 L 49 L Respiratory Rate 16 14 Blood Pressure 143/49 153/44 H O2 Sat by Pulse Oximetry 100 94 - EKG EKG #1 EKG read: Interp. by wv EKG Comments: Bradycardia noted. Sinus. No ectopy. Non-specific ST/T wave changes, no STEMI noted. - X-Ray X-Ray #1 X-Ray: chest Interpretation: Interp. by wv X-ray Comments: I personally reviewed CXR images as well as the official radiology report - CT/Ultrasound CT/Ultrasound Narrative: I reviewed official radiology report for CT aorta study - Progress/Reassessment Chief Complaint: Chest Pain Progress Note-Subjective: 12/20/20 14:55 Patient with CP and bradycardia. Patient has generalized weakness also. D/W Dr Christy who saw the patient in the ED and patient will be admitted. No aortic dissection or STEMI. Has new anemia of uncertain etiology and significance. Departure Clinical Impression: Chest pain, Bradycardia, Anemia - Departure Disposition: Still a patient Condition: Fair Referrals: Fatuma Christy MD [Primary Care Provider] -
[2020-12-20] MEDS ORDERED: ALBUTEROL SULFATE 2.5 MG/0.5 ML VIAL.NEB IH PRN (17:04)
[2020-12-20] MEDS ORDERED: ACETAMINOPHEN 325 MG TABLET PO PRN (17:04)
[2020-12-20] MEDS ORDERED: traZODone HCL 50 MG TABLET PO PRN (17:04)
[2020-12-20] MEDS ORDERED: ALPRAZolam 0.5 MG TABLET PO PRN (17:04)
[2020-12-20] MEDS: MEMANTINE HCL 10 MG TABLET PO SCH (20:20)
[2020-12-21 06:37] LABS: Hematocrit 25.7 % (37.0-47.0); Mean Cell Volume 98.5 fl (78-100); Mean Corpuscular Hemoglobin 30.7 pg (27-31); Mean Corpuscular Hgb Conc 31.1 g/dl (32-36); Mean Platelet Volume 10.4 fl (8-12.5); Platelet Count 138 K/mm3 (150-450); Red Blood Count 2.61 M/mm3 (4.2-5.4); Red Cell Distribution Width 15.2 % (11.5-14.0); White Blood Count 7.3 K/mm3 (4.0-10.5)
[2020-12-21 06:46] LABS: Total Cells Counted 100
[2020-12-21 06:56] LABS: Albumin * 2.5 gm/dl (3.4-5.0); Anion Gap 10.5 mmol/L (6.8-13.8); BUN/Creatinine Ratio 15.2 (9.0-21.6); Bilirubin, Total 0.5 mg/dL (0.0-1.1); Calcium * 8.1 mg/dL (7.9-10.9); Carbon Dioxide 28.4 mmol/L (24-32.6); Potassium 3.9 mmol/L (3.4-4.6); Total Protein 5.3 gm/dL (6.2-8.2)
[2020-12-21] MEDS ORDERED: LEVOTHYROXINE SODIUM 50 MCG TABLET PO SCH (07:00)
[2020-12-21 07:15] LABS: Basophil 1 % (0-1); Eosinophil 5 % (0-3); Immature Granulocyte 1 (0-1); Lymphocyte 28 % (20-51); Monocyte 9 % (0-9); Neutrophil 56 % (42-75); Neutrophil # 4.1 K/mm3 (1.3-6.0); Platelet Estimate Decreased (NORMAL)
[2020-12-21 07:16] LABS: Hypochromia 1+
[2020-12-21] MEDS ORDERED: CHOLECALCIFEROL 400 UNIT TABLET PO SCH (09:00)
[2020-12-21] MEDS ORDERED: FLUoxetine HCL 20 MG CAPSULE PO SCH (09:00)
[2020-12-21] MEDS ORDERED: ROSUVASTATIN CALCIUM 5 MG TABLET PO SCH (09:00)
[2020-12-21] MEDS ORDERED: NICOTINE 21 MG PATC TD SCH (09:00)
[2020-12-21] MEDS ORDERED: MULTIVIT-MIN/FA/LYCOPEN/LUTEIN 1 TAB TABLET PO SCH (09:00)
--- NOTE | 2020-12-21 09:19 | DS ---
(1) Chest pain Problem: Acute (2) Anemia Problem: Acute (3) Bradycardia Problem: Acute (4) Hyperlipidemia Problem: Chronic Qualifiers: (5) Anxiety and depression Problem: Chronic (6) AAA (abdominal aortic aneurysm) Problem: Chronic Qualifiers: (7) Chronic obstructive pulmonary disease Problem: Chronic Qualifiers: (8) Hypothyroidism Problem: Chronic Qualifiers: (9) Hypertension Problem: Chronic Qualifiers: (10) Dementia Problem: Chronic Hospital Course: 80-year-old female with past medical history of dementia, bradycardia, abdominal aortic aneurysm, anxiety, depression, COPD, hypertension, hyperlipidemia, hypothyroidism, osteoarthritis, gastritis presents from [facility] with complaints of weakness, chest pain and difficulty to arouse. She has had these recurring symptoms for the past few weeks. She was recently hospitalized at [facility] on December 17, 2020 for similar symptoms. She was evaluated by the help desk administrator Dr. Teodoro Mooney and he determined that no intervention was needed. She has a chronic history of bradycardia and had an echocardiogram, stress test in 2018, donepezil was discontinued at that time. On discharge her donepezil was again discontinued. In the ER she was found to have anemia with hemoglobin of 8.2, hematocrit of 26.8, baseline hemoglobin is 10-12, baseline hematocrit runs 33.7-37.1. She has mild hyponatremia with a sodium of 143, troponin is negative, chest x-ray shows no acute chest disease, CT angio shows no acute pulmonary thromboembolic disease, moderate pulmonary emphysema and scarring, stable 7 mm spiculated opacity in the lateral right middle lobe, infrarenal abdominal aortic and bilateral iliac aneurysm with intact endograft, no evidence of graft leak or complication, hepatic steatosis probable gallstone or sludge ball with no acute cholecystitis, small bilateral nonobstructing nephroliths. She denies any black or blood in her stool, guaiac stool is negative in the ER. She is being admitted for chest pain observation. Repeat troponin was negative, her hemoglobin remained stable at 8, her mentation improved significantly and chest pain resolved. Her blood pressure was slightly elevated this morning and I have started her on losartan 25 mg daily. She is stable for discharge back to [facility] today. She will follow-up with me in the office in 1-2 weeks. Procedures Performed: none Results and Findings: Lab Pending Results 12/20/20 10:47: SARS-CoV-2 (PCR) Not detected 12/20/20 10:50: WBC 6.3 D, RBC 2.71 L, Hgb 8.2 L, Hct 26.8 L, MCV 98.9, MCH 30.3, MCHC 30.6 L, RDW 15.0 H, Plt Count 120 L, MPV 9.4, Immature Gran % (Auto) 0.30, Immature Gran # (Auto) 0.02, Neutrophils % 49.7, Lymphocytes % 24.6, Monocytes % 11.2 H, Eosinophils % 13.7 H, Basophils % 0.5, Nucleated RBC % 0.0, Neutrophils # 3.1, Lymphocytes # 1.54, Monocytes # 0.7, Eosinophils # 0.9 H, Absolute Basophils 0.0 12/20/20 10:50: Sodium 143 H, Plasma Sodium 143 H, Potassium 3.9, Chloride 108 H, Carbon Dioxide 26.3, Anion Gap 12.6, BUN 15, Creatinine 1.29, Est GFR (Non-Af Amer) 42 L, BUN/Creatinine Ratio 11.6, Random Glucose 94, Calcium 8.0, Calcium Adj for Albumin 8.8, Total Bilirubin 0.4, AST 21, ALT 23, Alkaline Phosphatase 77, Troponin I Less than 0.017, B-Natriuretic Peptide 971 H, Total Protein 5.4 L, Albumin 2.6 L, Lipase 85 12/20/20 10:50: D-Dimer 2.03 H 12/20/20 13:04: Stool Occult Blood Negative 12/20/20 14:21: Hgb 8.5 L 12/20/20 14:21: Troponin I Less than 0.017 12/21/20 06:35: WBC 7.3, RBC 2.61 L, Hgb 8.0 L, Hct 25.7 L, MCV 98.5, MCH 30.7, MCHC 31.1 L, RDW 15.2 H, Plt Count 138 L, MPV 10.4, Neutrophils % (Manual) 56, Lymphocytes % (Manual) 28, Monocytes % (Manual) 9, Eosinophils % (Manual) 5 H, Basophils % (Manual) 1, Immature Granulocytes 1, Neutrophils # (Manual) 4.1, Lymphocytes # (Manual) 2.0, Monocytes # (Manual) 0.7, Eosinophils # (Manual) 0.4, Basophils # (Manual) 0.1, Platelet Estimate Decreased L, Hypochromasia 1+ 12/21/20 06:35: Sodium 144 H, Plasma Sodium 144 H, Potassium 3.9, Chloride 109 H, Carbon Dioxide 28.4, Anion Gap 10.5, BUN 21, Creatinine 1.38, Est GFR (Non-Af Amer) 39 L, BUN/Creatinine Ratio 15.2, Random Glucose 87, Calcium 8.1, Calcium Adj for Albumin 9.0, Total Bilirubin 0.5, AST 22, ALT 21, Alkaline Phosphatase 86, Total Protein 5.3 L, Albumin 2.5 L Discharge Location: [facility] Disposition: Home self-care Condition: Fair Discharge Activity: Activity as tolerated Discharge Diet: General/regular food Referrals: Fatuma Christy MD [Primary Care Provider] - Prescriptions (Any new or edited meds): Losartan Potassium 25 mg PO DAILY #30 tab Transmission Status: Pending to [facility] Complete Home Medications List: Complete Home Medication List: atorvastatin 10 mg tablet 10 mg PO DAILY #30 tab 08/24/20 levothyroxine 50 mcg tablet 50 mcg PO DAILY #30 tab 08/24/20 cholecalciferol (vitamin D3) 10 mcg (400 unit) tablet 400 unit PO DAILY #1 tab 08/26/20 [id number] ac 400 mcg-calcium carb 500 mg-vit K1 20 mcg tablet 1 tab PO DAILY #1 tab 08/26/20 memantine 10 mg tablet 10 mg PO BID #60 tab 10/03/20 aspirin 325 mg tablet 325 mg PO DAILY 11/29/20 acetaminophen 325 mg tablet 650 mg PO Q6H PRN tab 12/01/20 alprazolam 0.5 mg tablet 0.5 mg PO BID PRN #45 tab 12/01/20 fluoxetine 40 mg capsule 40 mg PO DAILY #90 cap 12/01/20 nicotine 21 mg/24 hr daily transdermal patch 1 patch TRANSDERMAL DAILY 42 Days # 42 ea 12/01/20 ALPRAZolam [Xanax] 0.5 mg PO BID #60 tab 12/06/20 Albuterol Sulfate [Albuterol Sulfate 0.63 MG/3ML] 0.63 mg IH Q12H PRN 12/17/20 traZODone HCL [Desyrel] 50 mg PO HS PRN 12/17/20 Losartan Potassium 25 mg PO DAILY #30 tab 12/21/20 Forms: Patient Portal Registration
[2020-12-21] MEDS ORDERED: LOSARTAN POTASSIUM 50 MG TABLET PO SCH (10:15)
[2020-12-21] MEDS: MEMANTINE HCL 10 MG TABLET PO SCH (10:45)
[2020-12-21 12:57] VITALS: BP 162/47
== END 2020-12-21 13:45 | disposition home or self-care (01) ==
LOC: MS 10:10 → ER 10:10 → MS 15:50
PROVIDERS: ADMIT Internal Medicine; ATTEND Internal Medicine